=== PATIENT | male | born 1950 | race Caucasian/White ===

== ENCOUNTER → 2021-06-03 | Outpatient (CLI) | payer OTHER ==
[~2021-06-03] MED LIST: ASPIRIN EC81 M1; COLACE100 MG; FERRO-TIME325 MG; NORCO 5-325 TA1 EACH; OXYCODONE HCL5 M1; PRILOSEC 20 MG20 MG PO
== END ==
LOC: M.LAB 11:53
PROVIDERS: ATTEND Internal Medicine Gastroenterology
DX: Z01.812 Encounter for preprocedural laboratory examination (principal); Z20.822 Contact with and (suspected) exposure to COVID-19